=== PATIENT | male | born 1945 | race Caucasian/White ===

== ENCOUNTER 2017-08-16 11:33 | Day surgery (SDC) | payer MEDICARE, OTHER ==
[~2017-08-16] VITALS: Ht 170.2 cm; Wt 75.0 kg
[~2017-08-16 11:33] MED LIST: ONDA4TAB59 PO
[2017-08-16 11:50] VITALS: BP 180/91
[2017-08-16] MEDS ORDERED: fentaNYL/PF 50MCG/1 ML 2ML syringe ONE (12:22)
[2017-08-16] MEDS ORDERED: MIDAZolam 5mg/5ml vial ONE (12:23)
[2017-08-16 13:23] VITALS: BP 142/69
[2017-08-16 13:33] VITALS: BP 138/71
[2017-08-16 13:43] VITALS: BP 146/76
[2017-08-16 13:53] VITALS: BP 158/87
== END 2017-08-16 14:00 | disposition home or self-care (01) ==
LOC: GI LAB 11:33
PROVIDERS: ATTEND Internal Medicine Gastroenterology
DX: K57.30 Diverticulosis of large intestine without perforation or abscess without bleeding (principal); K64.4 Residual hemorrhoidal skin tags; K64.8 Other hemorrhoids
CPT/HCPCS: 45378; G0500; J2250; J3010; J7030; A4620